=== PATIENT | female | born 1955 | race Caucasian/White ===

== ENCOUNTER 2018-09-24 14:22 | Emergency (ER) | payer MEDICAID, OTHER ==
[~2018-09-24] VITALS: Wt 102.5 kg
[~2018-09-24 14:22] MED LIST: ATOR20TA38 PO; CLON0.1T95 PO; DILT180C81 PO; ESOM20CA PO; FOLI-49 PO; LOSA100T3 PO; MYCO250C3 PO; NITR100C55 PO; PHEN-716 PO; PRED25 PO; SERT-165 PO; TACR1CAP26 PO
[2018-09-24] MEDS ORDERED: FENTAnyl 50 MCG/ML VIAL IV ONE ×2 (15:00→17:00)
[2018-09-24] MEDS ORDERED: HYDR-2086 PO (17:35)
[2018-09-24] MEDS ORDERED: ONDANSETRON 4 MG INJ IV STA (17:35)
[2018-09-24] MEDS ORDERED: NALO4SPR NS (17:38)
--- NOTE | 2018-09-24 18:01 | ERD ---
ER Documentation Chief Complaint Chief Complaint bib ra from home for glf, left shoulder pain, reduced rom HPI 63-year-old female with a history of hypertension and kidney transplant presen ting with complaints of left shoulder and left wrist pain after a ground-level fall. She was brought in by ambulance from a store after she had a slip and fall onto her knees and onto her left arm. Her knees are somewhat sore but she does not complain of severe pain. She does have severe pain in her left shoulder, 10 out of 10, radiating down her entire arm. Worse with movement. She has no numbness or tingling. She did hit her face on the floor but denies any loss of consciousness. ROS All systems reviewed and are negative except as per history of present illness. Medications Home Meds Active Scripts Naloxone HCl nasal spray (Narcan 4 mg/0.1 mL nasal) 4 Mg [place], 4 MG NS .Q2-3MIN for OPIOID OVERDOSE, #2 SPRAY 0 Refills [place] 0.1 mL into one nostril. Repeat with second device into other nostril after 2-3 minutes if no or minimal response Prov:DENNIS MORTENSEN MD 09/24/18 Hydrocodone Bit-Acetaminophen* (Vicodin*) 5-300 Tab, 1 TAB PO Q6 PRN for PAIN, #10 TAB Prov:DENNIS MORTENSEN MD 09/24/18 Reported Medications Nitrofurantoin Macrocrystal* (Macrodantin*) 100 Mg Capsule, 100 MG PO BID 03/03/13 Phenazopyridine Hcl* (Phenazopyridine Hcl*) 100 Mg Tablet, 200 MG PO TID 03/03/13 Losartan Potassium* (Cozaar*) 100 Mg Tablet, 50 MG PO BID 01/27/13 Prednisone (Prednisone) 2.5 Mg Tab, 5 MG PO DAILY 01/27/13 Clonidine Hcl (KAPVAY) 0.1 Mg Tab.er.12h, 0.1 MG PO Q12 PRN 01/27/13 Folic Acid* (Folic Acid*) 1 Mg Tablet, 1 MG PO DAILY 01/27/13 Sertraline Hcl* (Sertraline Hcl*) 100 Mg Tablet, 100 MG PO DAILY 01/27/13 Diltiazem Hcl (DILTIAZEM 24HR CD) 180 Mg Cap.er.24h, 180 MG PO DAILY 01/27/13 Tacrolimus* (Prograf*) 1 Mg Capsule, 2 MG PO BID TAKE AT 0800 AM & 2000 PM 01/27/13 Esomeprazole Mag Trihydrate (Nexium) 20 Mg Capsule.dr, 40 MG PO DAILY 01/27/13 Atorvastatin Calcium* (Atorvastatin Calcium*) 20 Mg Tablet, 20 MG PO DAILY 01/27/13 Mycophenolate Mofetil* (Cellcept*) 250 Mg Capsule, 1000 MG PO BID 01/27/13 Allergies Allergies: Coded Allergies: morphine (Verified Allergy, Unknown, 09/24/18) PMhx/Soc History of Surgery: Yes (kidney transplant left sideoctober 2010) Anesthesia Reaction: No Hx Neurological Disorder: No Hx Respiratory Disorders: No Hx Cardiac Disorders: Yes (htn) Hx Psychiatric Problems: Yes (DEPRESSION) Hx Miscellaneous Medical Probl: Yes (HTN,CVA ) Hx Alcohol Use: No Hx Substance Use: No Hx Tobacco Use: No Smoking Status: Never smoker FmHx Family History: No diabetes Physical Exam Vitals Vital Signs Date Temp Pulse Resp B/P (MAP) Pulse Ox O2 O2 Flow FiO2 Time Delivery Rate 09/24/18 98.2 99 19 189/100 97 14:25 (129) Physical Exam Const: Mild distress secondary to pain, nontoxic Head: Atraumatic Eyes: Normal Conjunctiva, PERRLA, EOMI, no supple conjunctival hemorrhage ENT: Left facial contusion with no bony tenderness. Normal External Ears, Nose and Mouth. Neck: Full range of motion. No meningismus. Resp: Clear to auscultation bilaterally Cardio: Regular rate and rhythm, no murmurs Abd: Soft, non tender, non distended. Normal bowel sounds Skin: No petechiae or rashes Back: No midline or flank tenderness Ext: Left upper extremity with no deformities noted. Clavicles are nontender. Left shoulder tender to palpation in the proximal humeral area. There is mild tenderness to palpation of the entire arm but most notable in the left shoulder and left wrist. There is some bruising over the radius. 2+ radial pulse. Sensations intact over the deltoid. Sensations intact distally with full range of motion of all fingers. Bilateral knee contusions with no swelling. Full range of motion at all joints. No deformities in other extremit ies. Neur: Awake and alert Psych: Normal Mood and Affect Results 24 hrs Current Medications Medications Dose Sig/[place] Start Time Status Last (Trade) Ordered Route PRN Stop Time Admin Dose Reason Admin Fentanyl 100 mcg ONCE ONCE 09/24/18 DC 09/24/18 (Sublimaze) IV 15:00 14:49 09/24/18 15:01 Fentanyl 50 mcg ONCE ONCE 09/24/18 DC 09/24/18 (Sublimaze) IV 17:00 16:45 09/24/18 17:01 Clonidine 0.3 mg ONCE ONCE 09/24/18 DC 09/24/18 (Catapres) PO 17:30 17:19 09/24/18 17:31 Ondansetron 4 mg ONCE STAT 09/24/18 DC 09/24/18 HCl (Zofran IV 17:35 17:40 Inj) 09/24/18 17:36 Procedures/MDM EMERGENT LABS AND DIAGNOSTIC STUDIES: Radiology Results as interpreted by Radiology below were reviewed by Wally Mortensen MD: X-ray left shoulder and humerus shows evidence of acute humeral surgical neck fracture X-ray left wrist shows comminuted distal radial fracture Initial Nursing notes reviewed. Previous Medical Records requested via the Electronic Health Record. EMERGENCY DEPARTMENT COURSE / MEDICAL DECISION MAKING: Patient is presenting after a mechanical ground-level fall with left arm pain. She also had a left facial contusion but I do not suspect intracranial hemorrhage, facial fracture or skull fracture. I do not think a CT head is indicated. X-rays showed evidence of proximal humeral fracture as well as a distal radial fracture. Sugar tong splint was applied. She was placed in a sling. She was neurovascularly intact on my exam. I recommended follow-up with her PCP tomorrow so she can get a referral to an orthopedist. She likely does not need surgery but will need to be followed, especially given the risk of nonunion due to her osteopenia. Patient understands discharge plan. Family is at bedside and is agreeable. Prescription for Vicodin given. Prescription for naloxone also given as the patient is on benzos at home. Patient's blood pressure was elevated (>120/80) but appears stable without ev idence of hypertensive emergency or urgency. He was given clonidine while here as she takes this medication at home. I suspect that her hypertension is likely due to her acute pain. The patient was counseled about the risks of hypertension and urged to pursue outpatient monitoring and therapy within a week with their primary care physician. Departure Diagnosis: Primary Impression: Humeral surgical neck fracture Encounter type: initial encounter Fracture type: closed Fracture morphology: unspecified fracture morphology Fracture alignment: nondisplaced Laterality: left Qualified Codes: S42.215A - Unspecified nondisplaced fracture of surgical neck of left humerus, initial encounter for closed fracture Additional Impressions: Facial contusion Encounter type: initial encounter Qualified Codes: S00.83XA - Contusion of other part of head, initial encounter Wrist fracture, left Encounter type: initial encounter Fracture type: closed Qualified Codes: S62.102A - Fracture of unspecified carpal bone, left wrist, initial encounter for closed fracture Fall Encounter type: initial encounter Qualified Codes: W19.XXXA - Unspecified fall, initial encounter Condition: Stable Patient Instructions: Fracture, Shoulder, Fracture, Wrist [General] Referrals: EMERALD DYSON MD Additional Instructions: You will need to make an appointment with your primary care doctor to get a referral to an orthopedist. DENNIS MORTENSEN MD Sep 24, 2018 18:01
[2018-09-24] MEDS ORDERED: SOD CHLORIDE 0.9% 500 ML IV STA (18:40)
[2018-09-24] MEDS ORDERED: METOCLOPRAMIDE 10 MG INJ IV STA (18:40)
[2018-09-24] MEDS ORDERED: NICARDipine HCL 30 MG CAPSULE PO ONE (20:00)
[2018-09-24 20:54] VITALS: BP 144/88; PULSE 78; RESP 18
== END 2018-09-24 21:04 | disposition home or self-care (01) ==
LOC: E/R 14:22
DX: S42.215A Unspecified nondisplaced fracture of surgical neck of left humerus, initial encounter for closed fracture (principal); S00.83XA Contusion of other part of head, initial encounter; S62.102A Fracture of unspecified carpal bone, left wrist, initial encounter for closed fracture; R40.2142 Coma scale, eyes open, spontaneous, at arrival to emergency department; R40.2252 Coma scale, best verbal response, oriented, at arrival to emergency department; R40.2362 Coma scale, best motor response, obeys commands, at arrival to emergency department; I10 Essential (primary) hypertension; W01.0XXA Fall on same level from slipping, tripping and stumbling without subsequent striking against object, initial encounter; Y92.9 Unspecified place or not applicable; Z86.73 Personal history of transient ischemic attack (TIA), and cerebral infarction without residual deficits
CPT/HCPCS: 36415; 70450; 73030; 73060; 73080; 73090; 73110; 80048; 85025; 93005; 96374; 96375; 96376; J2405; J2765; J3010; J7040; Z7502; Z7610

== ENCOUNTER 2019-04-12 21:31 | Emergency (ER) | payer OTHER ==
[~2019-04-12] VITALS: Ht 160 cm; Wt 92.0 kg
[~2019-04-12 21:31] MED LIST changes: +CEPH-443 PO; +HYDR-3024 PO; +NALO4SPR NS
[2019-04-12 21:32] VITALS: Ht 160 cm; Wt 92.0 kg
[2019-04-13] MEDS ORDERED: OXYCODONE/ACETAMINOPHEN (5/325) TAB PO ONE
[2019-04-13] MEDS ORDERED: CEPHALEXIN 500 MG CAP PO ONE
[2019-04-13 00:25] VITALS: BP 180/79; PULSE 59; RESP 20
== END 2019-04-13 00:55 | disposition home or self-care (01) ==
LOC: E/R 21:31
DX: M25.562 Pain in left knee (principal); I10 Essential (primary) hypertension; Z86.73 Personal history of transient ischemic attack (TIA), and cerebral infarction without residual deficits
CPT/HCPCS: 73562; Z7502; Z7610